=== PATIENT | female | born 1975 | race Caucasian/White ===

== ENCOUNTER 2019-04-24 21:04 | Emergency (ER) | payer BC ==
[2019-04-24] MEDS ORDERED: methylPREDNISolone Sod Succ/PF 125 MG/2 ML VIAL ONE (21:08)
[2019-04-24] MEDS ORDERED: diphenhydrAMINE 50 MG/ML VIAL ONE (21:08)
[2019-04-24] MEDS ORDERED: EPINEPHrine 1 MG/ML AMP ONE (21:08)
[2019-04-24] MEDS ORDERED: Dexamethasone 10 MG/ML VIAL ONE (21:15)
[2019-04-24] MEDS ORDERED: Famotidine/PF 20 mg/2ml Vial ONE (21:18)
[2019-04-24] MEDS ORDERED: predniSONE 20 MG TAB ONE (21:18)
[2019-04-24] MEDS ORDERED: Ondansetron PF 4 MG/2 ML Vial ONE (21:19)
== END 2019-04-24 22:30 | disposition home or self-care (01) ==
LOC: ERS 21:04
DX: T78.1XXA Other adverse food reactions, not elsewhere classified, initial encounter (principal); R21 Rash and other nonspecific skin eruption; J45.909 Unspecified asthma, uncomplicated; Z79.899 Other long term (current) drug therapy
CPT/HCPCS: 94760; 96361; 96372; 96374; 96375; J0171; J1100; J1200; J2405; J2930; J7512; S0028